=== PATIENT | female | born 1935 | race Caucasian/White ===

== ENCOUNTER 2017-05-11 11:52 | Emergency (ER) | payer OTHER, MEDICARE ==
[~2017-05-11] VITALS: Ht 157.5 cm; Wt 59.5 kg
[~2017-05-11 11:52] MED LIST: ACETAMINOPHN-T1 EACH PO; ANTI-DIARRHEA2 MG PO; ASPIR 8181 M1 PO; Ambien PO; Aspirin E.C. PO; BENTYL10 MG PO; BENTYL2 MG/ML PO; BENTYL20 MG PO; BISOPROLOL FUMAR5 M1 PO; BISOPROLOL FUMAR5 MG PO; Bentyl PO; CELEBREX200 MG PO; CIPROFLOXACIN500 M1 PO; COLACE100 MG PO; Cipro PO; DULCOLAX10 MG PR; ENOXAPARIN80 MG/0.8 SC; ESTRADIOL0.5 MG PO; Ecotrin PO; Estrace PO; FENTANYL1 EAC5 TD; FLEET ENEMA-AD118 ML PR; FLORA-Q CAPSUL1 EACH PO; Flagyl PO; HYDROCODON-ACE1 EAC7 PO; LOMOTIL TABLET1 EACH PO; LOPRESSOR25 MG PO; MACROBID100 MG PO; METRONIDAZOLE500 MG PO; MILK OF MAGN PO; Miralax, Glycolax PO; NITROSTAT0.4 MG SL; NORCO 5/3251 TABLET PO; Nitrostat,NitroQuick SL; OMEPRAZOLE20 M3 PO; PERCOCET 10/1 TABLET PO; PERCOCET 5/31 TABLET PO; PHENAZOPYRIDIN100 MG PO; PHENAZOPYRIDIN200 MG PO; PLAVIX75 MG PO; PRINIVIL20 MG PO; PROTONIX40 MG PO; PYRIDIUM200 MG PO; Plavix PO; SILVADENE,SSD,T20 GM TP; SUPER B COM1 CAPSULE PO; TOPROL XL50 MG PO; TRAMADOL HCL50 MG PO; TRAMADOL-ACETA1 EACH PO; ULTRAM50 MG PO; Ultram PO; ZEBETA5 MG PO; ZOFRAN8 MG PO; ZYRTEC10 M3 PO; Zebeta PO
[2017-05-11 12:21] LABS: EOSINOPHIL (%) 2.7 % (0-5); EOSINOPHIL COUNT 0.2 K/uL (0-0.3); IMMATURE GRANULOCYTE (%) 0.5 % (0.0-0.7); INSTRUMENT ABS NEUTROPHIL CT 3.9 K/uL; LYMPHOCYTE COUNT 0.9 K/uL (1.0-2.8); MCH 30.4 PG (29.0-34.0); MCHC 31.5 G/DL (30.0-36.0); MCV 96.7 FL (83-99); MEAN PLAT.VOLUME 10.6 uM^3 (9.5-12.4); MONOCYTE (%) 11.6 % (3-12); MONOCYTE COUNT 0.7 K/uL (0-0.8); NEUTROPHIL (%) 69.5 % (45-76); NEUTROPHIL COUNT 3.9 K/uL (1.8-6.4); PLATELET COUNT 175 K/uL (156-360); RBC DIS.WIDTH-CV 13.2 % (11.8-14.6); RBC DIS.WIDTH-SD 46.9 % (39-53); RED BLOOD COUNT 4.24 M/uL (3.80-5.20); WHITE BLOOD COUNT 5.6 K/uL (4.1-10.2)
[2017-05-11 12:29] LABS: CHLORIDE 107 mEq/L (99-109); POTASSIUM 5.4 mEq/L (3.7-5.4); SODIUM 138 mEq/L (136-147)
[2017-05-11 12:31] LABS: GLUCOSE 92 mg/dL (70-99)
[2017-05-11 12:32] LABS: ANION GAP 5 MEQ/L (2-14)
[2017-05-11 12:33] LABS: TOTAL BILIRUBIN 0.4 mg/dL (0.0-1.0)
[2017-05-11 12:35] LABS: ALKALINE PHOSPHATASE 74 IU/L (3-129); GFR ESTIMATE (CALCULATED) 27 mL/min/
[2017-05-11 12:36] LABS: UREA NITROGEN (BUN) 37 mg/dL (9-23)
[2017-05-11 12:42] LABS: TROP-I INTERPRETATION NEGATIVE; TROPONIN-I < 0.01 ng/mL (0.0-0.30)
[2017-05-11 15:06] LABS: TROP-I INTERPRETATION NEGATIVE; TROPONIN-I < 0.01 ng/mL (0.0-0.30)
[2017-05-11 15:36] VITALS: BP 133/70
== END 2017-05-11 16:11 | disposition home or self-care (01) ==
LOC: EME 11:52
PROVIDERS: Emergency Medicine
DX: R07.89 Other chest pain (principal); V49.50XA Passenger injured in collision with unspecified motor vehicles in traffic accident, initial encounter; I10 Essential (primary) hypertension
CPT/HCPCS: 71250; 80053; 84484; 85025; 93005; 99281; 99285

== ENCOUNTER 2017-05-22 13:02 | Emergency (ER) | payer OTHER, MEDICARE ==
[~2017-05-22] VITALS: Ht 160 cm; Wt 60.1 kg
[2017-05-22 13:46] LABS: HEMATOCRIT 41.1 % (36.0-46.0); MCH 30.8 PG (29.0-34.0); MCHC 31.9 G/DL (30.0-36.0); MCV 96.5 FL (83-99); MEAN PLAT.VOLUME 10.1 uM^3 (9.5-12.4); PLATELET COUNT 213 K/uL (156-360); RBC DIS.WIDTH-CV 13.3 % (11.8-14.6); RBC DIS.WIDTH-SD 47.7 % (39-53); RED BLOOD COUNT 4.26 M/uL (3.80-5.20); WHITE BLOOD COUNT 6.6 K/uL (4.1-10.2)
[2017-05-22 13:54] LABS: CHLORIDE 107 mEq/L (99-109); POTASSIUM 4.6 mEq/L (3.7-5.4); SODIUM 137 mEq/L (136-147)
[2017-05-22 13:56] LABS: GLUCOSE 94 mg/dL (70-99)
[2017-05-22 13:58] LABS: ANION GAP 6 MEQ/L (2-14); PROTHROMBIN TIME 10.1 (9.2-11.2); PTT 25.3 (25-32)
[2017-05-22 14:00] LABS: GFR ESTIMATE (CALCULATED) 39 mL/min/
[2017-05-22 14:01] LABS: UREA NITROGEN (BUN) 28 mg/dL (9-23)
[2017-05-22 14:06] LABS: TROP-I INTERPRETATION NEGATIVE; TROPONIN-I < 0.01 ng/mL (0.0-0.30)
[2017-05-22 16:17] VITALS: BP 162/61
== END 2017-05-22 16:19 | disposition home or self-care (01) ==
LOC: EME 13:02
PROVIDERS: Emergency Medicine
DX: R07.89 Other chest pain (principal); V49.50XD Passenger injured in collision with unspecified motor vehicles in traffic accident, subsequent encounter; K21.9 Gastro-esophageal reflux disease without esophagitis; I10 Essential (primary) hypertension; E78.5 Hyperlipidemia, unspecified; Z90.49 Acquired absence of other specified parts of digestive tract
CPT/HCPCS: 71020; 80048; 84484; 85027; 85610; 85730; 93005; 99281; 99285; J1885

== ENCOUNTER → 2017-07-01 | Outpatient (CLI) | payer OTHER, MEDICARE ==
[~2017-07-01] MED LIST changes: +AMBIEN5 MG PO; +CRESTOR5 MG PO
== END | disposition home or self-care (01) ==
LOC: RAD 16:30
DX: M89.8X8 Other specified disorders of bone, other site (principal); I70.90 Unspecified atherosclerosis; K43.9 Ventral hernia without obstruction or gangrene; Z95.828 Presence of other vascular implants and grafts; R93.5 Abnormal findings on diagnostic imaging of other abdominal regions, including retroperitoneum
CPT/HCPCS: 74176

== ENCOUNTER 2017-07-09 12:47 | Day surgery (SDC) | payer OTHER, MEDICARE ==
[~2017-07-09] VITALS: Ht 157.5 cm; Wt 59.0 kg
== END 2017-07-09 14:27 | disposition home or self-care (01) ==
LOC: PAIN 12:47 → SDC 13:15 → PAIN 13:15
DX: M47.26 Other spondylosis with radiculopathy, lumbar region (principal); M54.5 Low back pain; G89.29 Other chronic pain; I10 Essential (primary) hypertension; M54.2 Cervicalgia; I25.10 Atherosclerotic heart disease of native coronary artery without angina pectoris; R73.03 Prediabetes; F41.9 Anxiety disorder, unspecified; K21.9 Gastro-esophageal reflux disease without esophagitis; Z79.82 Long term (current) use of aspirin; Z88.0 Allergy status to penicillin
CPT/HCPCS: J1030; J3010; S0020

== ENCOUNTER 2017-10-01 08:10 | Day surgery (SDC) | payer OTHER, MEDICARE ==
[~2017-10-01] VITALS: Ht 157.5 cm; Wt 59.0 kg
== END 2017-10-01 10:15 | disposition home or self-care (01) ==
LOC: PAIN 08:10
DX: M47.26 Other spondylosis with radiculopathy, lumbar region (principal); M54.5 Low back pain; G89.29 Other chronic pain; I25.10 Atherosclerotic heart disease of native coronary artery without angina pectoris; I10 Essential (primary) hypertension; F41.9 Anxiety disorder, unspecified; E78.2 Mixed hyperlipidemia; Z85.048 Personal history of other malignant neoplasm of rectum, rectosigmoid junction, and anus; Z79.82 Long term (current) use of aspirin; Z88.0 Allergy status to penicillin
CPT/HCPCS: J2250; J2310; J3010; S0020

== ENCOUNTER 2018-02-01 08:42 | Day surgery (SDC) | payer OTHER, MEDICARE ==
[~2018-02-01] VITALS: Ht 157.5 cm; Wt 59.0 kg
== END 2018-02-01 10:48 | disposition home or self-care (01) ==
LOC: PAIN 08:42
DX: M46.1 Sacroiliitis, not elsewhere classified (principal); G89.4 Chronic pain syndrome; M47.816 Spondylosis without myelopathy or radiculopathy, lumbar region; M53.3 Sacrococcygeal disorders, not elsewhere classified; M54.16 Radiculopathy, lumbar region; I25.10 Atherosclerotic heart disease of native coronary artery without angina pectoris; Z95.5 Presence of coronary angioplasty implant and graft; K59.09 Other constipation; N30.40 Irradiation cystitis without hematuria; I10 Essential (primary) hypertension; Z85.048 Personal history of other malignant neoplasm of rectum, rectosigmoid junction, and anus; Z79.82 Long term (current) use of aspirin; Z88.1 Allergy status to other antibiotic agents; Z88.8 Allergy status to other drugs, medicaments and biological substances
CPT/HCPCS: J1030; J2250; J3010; S0020